=== PATIENT | male | born 1980 | race Caucasian/White ===

== ENCOUNTER 2017-04-25 15:36 | Inpatient (IN) | payer OTHER ==
[~2017-04-25] VITALS: Ht 167.6 cm; Wt 57.8 kg
--- NOTE | 2017-04-25 15:49 | ED PSYCHIATRIC COMPLAINT ---
See Addendum History of Present Illness General Chief Complaint: ETOH/Drug Related Complaint Stated Complaint: ON PEER FOR +SI AND ETOH Source: patient, EMS Exam Limitations: intoxication Vital Signs & Intake/Output Vital Signs & Intake/Output Vital Signs Date Time Temp Pulse Resp B/P B/P Pulse O2 O2 Flow FiO2 Mean Ox Delivery Rate 04/26 0051 98.6 82 18 151/75 97 Room Air 04/25 2202 98.2 94 16 151/84 96 Room Air 04/25 2202 98.2 94 18 151/84 04/25 1840 Room Air 04/25 1839 99.2 100 18 150/98 04/25 183 99.2 100 18 150/98 95 Room Air 04/25 1553 Room Air 04/25 1551 98.6 103 18 157/105 95 Room Air ED Intake and Output 04/26 0000 04/25 1200 Intake Total 240 Output Total Balance 240 Intake, Oral 240 Patient 138 lb Weight Weight Reported by Patient Measurement Method Allergies Coded Allergies: NO KNOWN ALLERGIES (04/25/17) Reconcile Medications No Known Home Medications Triage Nurses Notes Reviewed? yes Onset: Gradual Duration: worse persistent since (2-3 days) Timing: recent history Severity: moderate Associated Symptoms: anxiety HPI: Patient is a 36-year-old male with history of polysubstance abuse, alcohol dependence presenting to the emergency department via EMS on peer . Patient presently made comments that he wants to harm himself in front of his mother. His mother called EMS and the police. Patient reports that he said things out of anger and did not mean them. no current suicidal ideation and ideation. Denies hallucinations. Reports that he had 7 nips of hard alcohol today. He reports that he also vapes, denies any other drug use. Denies any chest pain palpitations or shortness of breath. No history of withdrawal seizures. Patient not requesting alcohol detox. (Cat Marrero) Past History Medical History Any Pertinent Medical History? 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 No (Cat Marrero) Review of Systems Review of Systems Constitutional: Reports: no symptoms. Comments Review of systems: See HPI, All other systems negative. Constitutional, no chills fever or weight loss HEENT: No visual changes no sore throat no congestion Cardiovascular: No chest pain ,palpitation Skin, no jaundice no rashes Respiratory: No dyspnea cough sputum or hemoptysis GI: No nausea no vomiting : No dysuria No hematuria Muscle skeletal: no back pain, no neck pain, Neurologic: No numbness no confusion, no headaches Psych: Positive stress and anxiety Heme/endocrine: No bruising no bleeding no polyuria or polydipsia Immunology: No splenectomy or history of AIDS (Cat Marrero) Physical Exam Physical Exam General Appearance: no apparent distress, alert, awake, intoxicated Neurological/Psychiatric: oriented x 3 Comments: Well-developed well-nourished person in no acute distress HEENT: Atraumatic, normocephalic Neck: Normal inspection Cardiovascular: Regular rate and rhythms no murmurs rubs or gallops, normal JVP Respiratory: No respiratory distress.breath sounds clear to auscultation bilaterally Extremity: No edema Neuro: Alert oriented x3 Skin: No appreciable rash on exposed skin, skin is warm and dry. Psych: Slightly anxious, hyperverbal. intoxicated. SAD PERSONS Done? patient not suicidal (Cat Marrero) Progress Differential Diagnosis: polysubstance abuse, alcohol dependence on alcohol withdrawal, major depressive disorder, generalized anxiety disorder Plan of Care: Orders Procedure Date/time Status Regular Diet 04/26 B Active Continuous Observation Monitor 04/26 0700 Active Continuous Observation Monitor 04/26 0300 Active Continuous Observation Monitor 04/25 2300 Active Continuous Observation Monitor 04/25 1900 Active ED CRISIS PSYCH CONSULT 04/25 1549 Active Continuous Observation Monitor 04/25 1548 Active CIWA 04/25 1548 Active URINE DRUG SCREEN FOR ER ONLY 04/25 1548 Complete ETHANOL 04/25 1548 Complete COMPREHENSIVE METABOLIC PANEL 04/25 1548 Complete CBC WITHOUT DIFFERENTIAL 04/25 1548 Complete Laboratory Tests 04/25/17 1602: Anion Gap 22 H, Estimated GFR > 60, BUN/Creatinine Ratio 17.1, Glucose 174 H, Calcium 9.5, Total Bilirubin 0.4, AST 24, ALT 32, Alkaline Phosphatase 83, Total Protein 7.9, Albumin 5.3 H, Globulin 2.6, Albumin/Globulin Ratio 2.0, CBC w Diff NO MAN DIFF REQ, RBC 5.40, MCV 94.9 H, MCH 32.3 H, MCHC 34.1, RDW 13.1, MPV 6.8 L, Gran % 79.6 H, Lymphocytes % 14.6 L, Monocytes % 5.0, Eosinophils % 0.5, Basophils % 0.3, Absolute Granulocytes 10.3 H, Absolute Lymphocytes 1.9, Absolute Monocytes 0.6, Absolute Eosinophils 0.1, Absolute Basophils 0, Serum Alcohol 224.0 04/25/17 1558: Urine Opiates Screen 1032.00, Methadone Screen < 40, Barbiturate Screen < 60, Ur Phencyclidine Scrn < 6.00, Amphetamines Screen < 100, U Benzodiazepines Scrn < 85, Urine Cocaine Screen < 50, Urine Cannabis Screen > 80.00 H Hand-Off Endorsed To: Noe Lawler MD Endorsed Time: 1999 Pending: consult Comments: Signed out to pending reevaluation. (Cat Marrero) Hand-Off Endorsed To: Ragini Joseph MD Endorsed Time: 699 Pending: consult (Noe Lawler MD) Departure Departure Disposition: STILL A PATIENT Condition: Stable Clinical Impression Primary Impression: Alcohol dependence Qualifiers: Substance use status: uncomplicated Qualified Code: F10.20 - Alcohol dependence, uncomplicated Secondary Impressions: Polysubstance abuse Referrals: Patient Has No Primary Care Dr Departure Forms: Customer Survey General Discharge Information Prescriptions: Current Visit Scripts No Known Home Medications (Cat Marrero)
[2017-04-25 16:14] LABS: ABSOLUTE BASOPHIL COUNT 0 /CUMM (0.0-0.2); ABSOLUTE EOSINOPHIL COUNT 0.1 /CUMM (0.0-0.7); ABSOLUTE GRANULOCYTE CT 10.3 /CUMM (1.4-6.5); ABSOLUTE LYMPH COUNT 1.9 /CUMM (1.2-3.4); ABSOLUTE MONOCYTE COUNT 0.6 /CUMM (0.10-0.60); BASOPHIL % 0.3 % (0.0-2.0); EOSINOPHIL % 0.5 % (0-5); HEMATOCRIT 51.2 % (42-52); MEAN CORPUSCULAR HGB 32.3 PG (27.0-31.0); MEAN CORPUSCULAR HGB CONC 34.1 G/DL (33.0-37.0); MEAN CORPUSCULAR VOLUME 94.9 FL (80.0-94.0); MEAN PLATELET VOLUME 6.8 FL (7.4-10.4); PLATELET COUNT 369 /CUMM (130-400); RBC DISTRIBUTION WIDTH 13.1 % (11.5-14.5); WHITE BLOOD CELL COUNT 12.9 /CUMM (4.8-10.8)
[2017-04-25 16:17] LABS: GRANULOCYTE % 79.6 % (42.2-75.2)
[2017-04-25 18:39] VITALS: BP 150/98
[2017-04-25 22:02] VITALS: BP 151/84
[2017-04-26] VITALS (9 sets, daily range): BP systolic 111–155; BP diastolic 74–96
--- NOTE | 2017-04-26 10:55 | ED PSYCH CRISIS CONSULTATION ---
Crisis Consult Basic Assessment Date of Consult: 04/26/17 Responsible Person/Accompanied By: self/biba/PEER Insurance Authorization: Insurance #1: Insurance name: MEGHAN FRIED Phone number: Policy number: [id number] Group number: [id number] Authorization number: ED Provider: Patient's ED Provider: Ragini Joseph MD Primary Care Physician: Patient's PCP: Romero Foreman DO PCP's Current Psychiatrist: none Chief Complaint: ETOH/Drug Related Complaint Patient's Quote: Wish I didn't get that drunk Present Illness: Pt is a 36 yo male biba to [place] ED yesterday afternoon on a [place] [employer] PEER for statement "he wants to ". Pt BAL: in ED 224 and Urine Tox screen positive for marijuana and opiates (pt reports opiates is for prescribed pain pills for shoulder and back pain). During consult pt denies SI/HI. Pt denies AH/ VH. Pt reports 0/10 depression and 0/10 anxiety. Pt denies MH tx other than vague statement that at age 18 he had "treatment" but doesn't want to discuss. Pt reports no hx of psychiatric medication. Pt reports occasional glass of wine and some nips but reports no concerns regarding his drinking habits. Pt reports seldom marijuana use (last use 1 month ago). 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 Pt reports having 3 children ages 11, 9 and 6 mos and resides with his gf who is the mother of the 6 month old. He reports wkend visitation with the other two children. Pt reports some work stress with long hrs but otherwise denies concerns or stressors. Pt reports good sleep and good appetite. Pt complains about shoulder and back pain and is prescribed flexiril and may require rotator cuff surgery in the future. Collateral provided by pt Susan [phone]. She reports pt has been making SI statements and texting and facebook posts past two days since gf broke off their relationship (mother came to ED and provided crisis with copies of facebook and text posts). She reports he appears to be drinking heavily past three days and not caring for himself. She reports pt had made two previous suicide attempts of tylenol o/d at age 18 and 7 yrs ago with hospitalizations at [facility] and [facility]. She reports pt is resistant to mental health tx and medications and is in denial of his mental health issues and problems with etoh. She reports pt is in denial can make reckless and impulsive decisions. She reports pt has been able to stay employed but has poor interpersonal skills and fights with others when drinking. She reports concern that pt needs inpatient treatment before he hurts himself or others. Case reviewed with Dr Mera with order for inpatient psychiatric treatment. Plan discussed with pt who has verbalized non-compliance with plan. If pt unwilling to sign in voluntarily he will be placed on a PEC. Patient's Address: [address] [place] [address] Other Phone Number: Who Do You Live With? Family (mother/father/sister) Family/Informants Interviewed: Collateral provided by pt mother Susan Allergies - Coded Allergies: NO KNOWN ALLERGIES (04/25/17) Current Medications - No Known Home Medications Laboratory Results: Laboratory Tests 04/25/17 1602: Anion Gap 22 H, Estimated GFR > 60, BUN/Creatinine Ratio 17.1, Glucose 174 H, Calcium 9.5, Total Bilirubin 0.4, AST 24, ALT 32, Alkaline Phosphatase 83, Total Protein 7.9, Albumin 5.3 H, Globulin 2.6, Albumin/Globulin Ratio 2.0, CBC w Diff NO MAN DIFF REQ, RBC 5.40, MCV 94.9 H, MCH 32.3 H, MCHC 34.1, RDW 13.1, MPV 6.8 L, Gran % 79.6 H, Lymphocytes % 14.6 L, Monocytes % 5.0, Eosinophils % 0.5, Basophils % 0.3, Absolute Granulocytes 10.3 H, Absolute Lymphocytes 1.9, Absolute Monocytes 0.6, Absolute Eosinophils 0.1, Absolute Basophils 0, Serum Alcohol 224.0 04/25/17 1558: Urine Opiates Screen 1032.00, Methadone Screen < 40, Barbiturate Screen < 60, Ur Phencyclidine Scrn < 6.00, Amphetamines Screen < 100, U Benzodiazepines Scrn < 85, Urine Cocaine Screen < 50, Urine Cannabis Screen > 80.00 H Past History Past Medical History Neurological: NONE EENT: NONE Cardiovascular: NONE Respiratory: NONE Gastrointestinal: NONE Hepatic: NONE Renal: NONE Musculoskeletal: NONE Psychiatric: alcohol dependence (IN PAST) Endocrine: NONE Blood Disorders: NONE Cancer(s): NONE 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 Psychiatric Treatment History Psych Treatment Psychiatric Treatment Yes Inpatient Treatment Yes Outpatient Treatment No Location of Treatment [facility] (age 18), [facility] (2010) Reason for Treatment depession/Suicide attempt Response to Treatment pt has been resistant to medications and outpatient tx Diagnosis by History: depression/bipolar? etoh abuse Substance Use/Abuse History Drug Use/Abuse Substances Used/Abused Yes Substance Used/Abused Alcohol Last Used yesterday How much used/taken bunch of nips How often family reports almost daily Substance Abuse Treatment Substance Abuse Treatment Past Substance Abuse TX No Inpatient Treatment No Outpatient Treatment No Comments: pt has almost daily etoh; current BAL:250; positive tox screen for marijuana Current Mental Status Mental Status Orientation: Person, Place, Situation Affect: Anxious, Labile Speech: Evasive, Loud Neuro-vegetative: Sleep Disturbance Appearance Appearance- Dress/Hygiene: hospital scrubs; poor hygiene; maladorous; not shaven Behaviors Thought Process: WNL Thought Content: WNL Memory: WNL Insight: Poor SI/HI Risk Assessment Past Suicidal Ideation/Attempts Yes Current Suicidal Ideation/Att Yes (pt denies) Past Homicidal Ideation/Att: No Current Homicidal Ideation/Attempts No Degree of Intent: pt denies but has been texting, verbalizing and facebook messaging SI Danger To: Self Gravely Disabled: Lack of Insight, Poor Impulse Control, Poor Judgment Risk Factors: history of suicide atmpts, SA/MH hospitalized, substance abuse, poor impulse control, lack of outcome concern, male Lethality Ratin PTSD Checklist PTSD Done? patient declined ED Management Sitter: Yes Restraints: Yes DSM5/PS Stressors/Medical Prob Diagnosis' (DSM 5, Stressors, Medical): Unspecified Depression Bipolar d/o ? Alcohol Use d/o Canabis Use d/o recent break up shoulder/knee/back pain Current GAF: 20 Comments: Collateral reports pt has been making suicidal statements and posting suicidal messages past few days since gf broke up with him. Family reports pt has 2 prior suicide attempts. Family reports almost daily etoh use but has been more intoxicated past few days. Pt denies SI; denies etoh problems; denies depression ; etc. Departure Disposition Psych Medical Clearance Date: 04/26/17 Medically Cleared at: 0800 Time Started: 0800 Time Ended: 0845 Psychiatrist Consulted: Quique Mera MD Date Disposition Established: 04/26/17 Time Disposition Established: 1030 Plan for Disposition - Modality: Inpatient Psychiatry Rationale for Disposition: Pt making Suicidal statements to family and friends past 2 days since gf ended relationship. Pt biba after making SI statement. Pt is intoxicated and in denial of making statements. Pt requires inpatient tx for mood stabilization and assess for medications. Referrals Romero Foreman DO (PCP/Family)
--- NOTE | 2017-04-26 13:27 | ED PSY CRISIS COLLATERAL NOTE ---
Collateral Note Collateral Note Family/Inform/Jose De Jesus Contacts: Crisis attempted to obtain insurance authorization through [employer] ( ). Due to patient's plan additional clinical is needed for initial authorization. Reference # is [id number].
--- NOTE | 2017-04-26 13:50 | IP CRISIS DIAG ASSESS PSYCH ---
Diagnostic Assessment Basic Assessment Insurance Authorization: Insurance #1: Insurance name: ME[employer]AN FRIED Phone number: Policy number: [id number] Group number: [id number] Authorization number: Primary Care Physician: Patient's PCP: Romero Foreman DO PCP's Patient's Quote: Wish I didn't get that drunk Present Illness: Per Chester Lees's crisis consult from 04/26/17: Pt is a 36 yo male biba to [place] ED yesterday afternoon on a [place] [employer] PEER for statement "he wants to ". Pt BAL: in ED 224 and Urine Tox screen positive for marijuana and opiates (pt reports opiates is for prescribed pain pills for shoulder and back pain). During consult pt denies SI/HI. Pt denies AH/ VH. Pt reports 0/10 depression and 0/10 anxiety. Pt denies MH tx other than vague statement that at age 18 he had "treatment" but doesn't want to discuss. Pt reports no hx of psychiatric medication. Pt reports occasional glass of wine and some nips but reports no concerns regarding his drinking habits. Pt reports seldom marijuana use (last use 1 month ago). 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 Pt reports having 3 children ages 11, 9 and 6 mos and resides with his gf who is the mother of the 6 month old. He reports wkend visitation with the other two children. Pt reports some work stress with long hrs but otherwise denies concerns or stressors. Pt reports good sleep and good appetite. Pt complains about shoulder and back pain and is prescribed flexiril and may require rotator cuff surgery in the future. Collateral provided by pt Susan [phone]. She reports pt has been making SI statements and texting and facebook posts past two days since gf broke off their relationship (mother came to ED and provided crisis with copies of facebook and text posts). She reports he appears to be drinking heavily past three days and not caring for himself. She reports pt had made two previous suicide attempts of tylenol o/d at age 18 and 7 yrs ago with hospitalizations at [facility] and [facility]. She reports pt is resistant to mental health tx and medications and is in denial of his mental health issues and problems with etoh. She reports pt is in denial can make reckless and impulsive decisions. She reports pt has been able to stay employed but has poor interpersonal skills and fights with others when drinking. She reports concern that pt needs inpatient treatment before he hurts himself or others. Case reviewed with Dr Mera with order for inpatient psychiatric treatment. Plan discussed with pt who has verbalized non-compliance with plan. If pt unwilling to sign in voluntarily he will be placed on a PEC. UPDATE: 04/26/17 @ 13:40 Crisis met with patient to inform him that he will be admitted to our psychiatric inpatient unit. Pt reports he wants to do whatever so he can get to work on Saturday because of "bills". Explained to pt that he can voluntarily sign in to our unit which would show that he's on board with his treatment. Pt reviewed expectations of CPS and signed the voluntary form as well as the patient guidelines. Patient's Address: [address] [place] [address] Other Phone Number: Who Do You Live With? Family (mother/father/sister) Feel Safe Where You Live? Yes Marital Status: single Do You Have Children? Yes Ages? 6 mons, 9, 11 Primary Language? Burkinan Language(s) Spoken At Home: Burkinan Family/Informants Interviewed: Collateral provided by pt mother Susan Allergies - Coded Allergies: NO KNOWN ALLERGIES (04/25/17) Current Medications - No Known Home Medications Consequences of Psych Med Use: no current meds Lab Results: Laboratory Tests 04/25/17 1602: Anion Gap 22 H, Estimated GFR > 60, BUN/Creatinine Ratio 17.1, Glucose 174 H, Calcium 9.5, Total Bilirubin 0.4, AST 24, ALT 32, Alkaline Phosphatase 83, Total Protein 7.9, Albumin 5.3 H, Globulin 2.6, Albumin/Globulin Ratio 2.0, CBC w Diff NO MAN DIFF REQ, RBC 5.40, MCV 94.9 H, MCH 32.3 H, MCHC 34.1, RDW 13.1, MPV 6.8 L, Gran % 79.6 H, Lymphocytes % 14.6 L, Monocytes % 5.0, Eosinophils % 0.5, Basophils % 0.3, Absolute Granulocytes 10.3 H, Absolute Lymphocytes 1.9, Absolute Monocytes 0.6, Absolute Eosinophils 0.1, Absolute Basophils 0, Serum Alcohol 224.0 04/25/17 1558: Urine Opiates Screen 1032.00, Methadone Screen < 40, Barbiturate Screen < 60, Ur Phencyclidine Scrn < 6.00, Amphetamines Screen < 100, U Benzodiazepines Scrn < 85, Urine Cocaine Screen < 50, Urine Cannabis Screen > 80.00 H Toxicology Screen Completed? Yes Results: positive Symptoms of Use: positive for cannabis which pt reports he last smoked approx 1 month ago positive for opiates- patient reports he is pain meds for his shoulder and back pain Past History Past Medical History Medical History: Depression, Psychiatric history Abuse/Trauma History Trauma History/Current Trauma: Denies Legal History Current Legal Status: none Have you ever been arrested? 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 Physical Limitations (Interventions): pt reports he may require rotaor cuff surgery in the future Psychiatric Treatment History Psych Treatment Psychiatric Treatment Yes Inpatient Treatment Yes Outpatient Treatment No Location of Treatment [facility] (age 18), [facility] (2010) Reason for Treatment depession/Suicide attempt Response to Treatment pt has been resistant to medications and outpatient tx Diagnosis by History: depression/bipolar? etoh abuse Risk Factors: history of suicide atmpts, SA/MH hospitalized, substance abuse, poor impulse control, lack of outcome concern, male Substance Use/Abuse History Drug Use/Abuse minimum 12mo Hx 1 Substances Used/Abused Yes Substance Used/Abused Alcohol Last Used yesterday How much used/taken bunch of nips How often family reports almost daily Drug Use/Abuse minimum 12mo Hx 2 Substances Used/Abused Yes Substance Used/Abused Marijuana Last Used 1 month ago How much used/taken unsure How often varies Route of use inhale Drug Use/Abuse minimum 12mo Hx 3 Substances Used/Abused Yes Substance Used/Abused Nicotine First Use unk Last Used 04/25/17 How much used/taken equivalent to 3-4 cigarettes/day- unfilterd cigars/vapes Route of use inhale Substance Abuse Treatment Substance Abuse Treatment Past Substance Abuse TX No Inpatient Treatment No Outpatient Treatment No Current Mental Status Mental Status Orientation: Person, Place, Situation Affect: WNL Speech: WNL Neuro-vegetative: Sleep Disturbance Appearance Appearance- Dress/Hygiene: hospital scrubs; poor hygiene; maladorous; not shaven Behaviors Thought Process: WNL Thought Content: WNL Memory: WNL Insight: Poor SI/HI Risk Assessment - Minimum 6mo History- Past Suicidal Ideation/Attempts Yes Current Suicidal Ideation/Att Yes (pt denies) Past Homicidal Ideation/Att: No Current Homicidal Ideation/Attempts No Degree of Intent: pt denies but has been texting, verbalizing and facebook messaging SI Danger To: Self Gravely Disabled: Lack of Insight, Poor Impulse Control, Poor Judgment Risk Factors: history of suicide atmpts, SA/MH hospitalized, substance abuse, poor impulse control, lack of outcome concern, male Lethality Ratin Needs/Init TX Plan/Goals: comphrensive psychiatric assessment medication evaluation comphensive psychosocial assessment individual therapy group therapy family meeting AUDIT-C Questionnaire: AUDIT-C Questionnaire: Response Value ETOH use in the past year 2-4 times/month 2 # drinks typical/day 1 or 2 0 6 or > drinks per occasion Never 0 Total 2 DSM5/PS Stressors/Medical Prob Diagnosis' (DSM 5, Stressors, Medical): F32.9 Unspecified Depressive Disorder R/O Bipolar Disorder F10.20 Alcohol Use Disorder, Severe F12.20 Cannabis Use Disorder, Mild recent break up shoulder/knee/back pain Current GAF: 20 Comments: Collateral reports pt has been making suicidal statements and posting suicidal messages past few days since gf broke up with him. Family reports pt has 2 prior suicide attempts. Family reports almost daily etoh use but has been more intoxicated past few days. Pt denies SI; denies etoh problems; denies depression; etc.
[2017-04-27] VITALS (9 sets, daily range): BP systolic 135–154; BP diastolic 75–96
--- NOTE | 2017-04-27 12:02 | CPS PROVIDER INIT ASMT PSYCH ---
Psychiatric Admission Seo Analyst's Note Reviewed: Yes Patient Seen and Examined: Yes Identifying Information: 36yoM Chief Complaint: "I was very very very stressed" Reaction to Hospitalization: no change History of Present Illness Onset of Illness: few months Circumstances Leading to Admission: worsening alcohol use Problem(s) Justifying Need for Admission: SI and alcohol use Other HPI: Pt reports that he feels that his only problems are "being overworked and really stresed." He notes that his stressors are working, managing children, and relationship with partner. He feels that these are only issues. Denies manic, psychotic, or TRS. Pt adamant that does not have bipolar disorder. In addition, he notes that he did not drink enough to have any withdrawal sx. Refusing ativan. "I do not want meds, I only want a multivitamin." Denies SI or HI. When reviewed history from crisis note, he stated, "I don't remember, I was drinking. " Denies that he would have stated that he wanted to hurt self. Past Psychiatric History Past Diagnosis(es)- if any: Bipolar disorder AUD ADHD Past Precipitating Factors- if any: unclear, pt did not want to discuss any past psych history, "the past is the past!!!" - Include inpatient and outpatient treatment Treatment History: Pt had a therapist at [facility] in [place]. Cannot recall name. Did take lithium but "made me a different person," and discontinued. History of Suicide Attempts or Gestures "a very long time ago, its in the past and I won't talk about it" Substance Abuse History: Tobacco: former cig smoker, now pipe and vap Alcohol: 1 glass daily until more recently, "I cant remember how much I was drinking" Illicts: past use of mj; denied more recent use despite +utox Allergies: Coded Allergies: NO KNOWN ALLERGIES (04/25/17) Home Med List: see H&P - Include any medical condition(s) that may - impact the patient's recovery/remission Past Medical History: Pt denied Past History Medical History Neurological: NONE EENT: NONE Cardiovascular: NONE Respiratory: NONE Gastrointestinal: NONE Hepatic: NONE Renal: NONE Musculoskeletal: NONE Psychiatric: alcohol dependence (IN PAST) Endocrine: NONE Blood Disorders: NONE Cancer(s): NONE 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 History of MRSA: No History of VRE: No History of CDIFF: No Isolation History: Standard Influenza Vaccine: 01/06/17 Surgical History Surgical History: none Psychiatric Family/Social Hx Family History Psychiatric Illness: denied Substance Use: denied Suicides: denied Social History Living Situation: with gf and child Significant Relationships (family/friends): gf though they recently broke up Education: HS 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 - #1 Recognizing dangerous situations. - #2 Coping Skills. - #3 Basic information about quitting. Status of Tobacco Cessation Counseling: #1, #2 AND #3 Completed Cessation Med Status Nicotine Patch Ordered Alcohol Screening - ETOH screen POS if BAL >=80 or Audit-C>= M4/F3 Audit-C Score from Diag Assess: 2 Blood Alcohol Level: Laboratory Tests 04/25 1602 Toxicology Serum Alcohol (<10 MG/DL) 224.0 Alcohol Use Screening Results: Pos per Audit C &/or BAL - If ETOH counseling indicated - the following topics are required. - #1 Express concern about the patient's - drinking at unhealthy levels, include informing - of national norms for moderate drinking: - men <= 14 drinks/week, max 4 drinks/occasion - women <= 7 drinks/week, max 3 drinks/occasion - #2 Providing feedback, including linking alcohol to - negative physical effects (liver injury, hypertension) - negative emotional effects (relationship problems and - depression) - negative occupational consequences (reduced work - performance) - #3 Advising the patient to abstain from alcohol or - to drink below national norms for moderate drinking - (as listed above). Status of ETOH Use Counseling: #1, #2 AND #3 Completed. Metabolic Screening - Screen if on a Neuroleptic Medication - Metabolic screening should include: - Blood Pressure, BMI, Glucose or Hgb A1c, & a - Lipid profile from within the past 365 days. Metabolic Screening () Not Applicable, patient not on a neuroleptic. OR () Patient on a neuroleptic(s) . Enter below results for Hemoglobin A1C, and lipid panel if obtained during the last 365 days. BMI: 22.200 Blood Pressure: 154/78 Laboratory Results From [facility] (If applicable): Laboratory Tests 04/25 04/25 1602 1558 Chemistry Sodium (137 - 145 mmol/L) 144 Potassium (3.5 - 5.1 mmol/L) 3.7 Chloride (98 - 107 mmol/L) 100 Carbon Dioxide (22 - 30 mmol/L) 22 Anion Gap (5 - 16) 22 H BUN (9 - 20 mg/dL) 12 Creatinine (0.7 - 1.2 mg/dL) 0.7 Estimated GFR (>60 ml/min) > 60 BUN/Creatinine Ratio (7 - 25 %) 17.1 Glucose (65 - 99 mg/dL) 174 H Hemoglobin A1c (4.2 - 5.8 %) 5.2 Calcium (8.4 - 10.2 mg/dL) 9.5 Total Bilirubin (0.2 - 1.3 mg/dL) 0.4 AST (17 - 59 U/L) 24 ALT (21 - 72 U/L) 32 Alkaline Phosphatase (< 127 U/L) 83 Total Protein (6.3 - 8.2 g/dL) 7.9 Albumin (3.5 - 5.0 g/dL) 5.3 H Globulin (1.9 - 4.2 gm/dL) 2.6 Albumin/Globulin Ratio (1.1 - 2.2 %) 2.0 Triglycerides (<150 mg/dL) 66 Cholesterol (< 200 MG/DL) 186 LDL Cholesterol, Calc (65 - 129 mg/dL) 107 HDL Cholesterol (40 - 60 mg/dL) 66 H Cholesterol/HDL Ratio (0.00 - 4.88 %) 3 TSH &T3 &Free T4 Intrp (0.27 - 4.20 uIU/mL) 1.370 Hematology CBC w Diff NO MAN DIFF REQ WBC (4.8 - 10.8 /CUMM) 12.9 H RBC (4.70 - 6.10 /CUMM) 5.40 Hgb (14.0 - 18.0 G/DL) 17.5 Hct (42 - 52 %) 51.2 MCV (80.0 - 94.0 FL) 94.9 H MCH (27.0 - 31.0 PG) 32.3 H MCHC (33.0 - 37.0 G/DL) 34.1 RDW (11.5 - 14.5 %) 13.1 Plt Count (130 - 400 /CUMM) 369 MPV (7.4 - 10.4 FL) 6.8 L Gran % (42.2 - 75.2 %) 79.6 H Lymphocytes % (20.5 - 51.1 %) 14.6 L Monocytes % (1.7 - 9.3 %) 5.0 Eosinophils % (0 - 5 %) 0.5 Basophils % (0.0 - 2.0 %) 0.3 Absolute Granulocytes (1.4 - 6.5 /CUMM) 10.3 H Absolute Lymphocytes (1.2 - 3.4 /CUMM) 1.9 Absolute Monocytes (0.10 - 0.60 /CUMM) 0.6 Absolute Eosinophils (0.0 - 0.7 /CUMM) 0.1 Absolute Basophils (0.0 - 0.2 /CUMM) 0 Toxicology Urine Opiates Screen (>2000 NG/ML) 1032.00 Methadone Screen (>300 NG/ML) < 40 Barbiturate Screen (>200 NG/ML) < 60 Ur Phencyclidine Scrn (>25 NG/ML) < 6.00 Amphetamines Screen (>1000 NG/ML) < 100 U Benzodiazepines Scrn (>200 NG/ML) < 85 Urine Cocaine Screen (>300 NG/ML) < 50 Urine Cannabis Screen (>50 NG/ML) > 80.00 H Serum Alcohol (<10 MG/DL) 224.0 Exam and Plan Mental Status Examination Ambulation Status: freely w/o difficulty Appearance: younger than stated age Attitude towards examiner: cooperative though very evasive and defensive especially around past psych history Psychomotor activity: slight agitation Behavior: cooperative Quality of speech: nl p/r, increase rate though not to the level of being pressured, increased volume Affect: irritable, labile, appropriate, congruent Mood: "I'm fine" Suicidal Ideation: denied Homicidal Ideation: denied Hallucinations: denied Paranoid/Delusional Material: denied Difficulties with thought organization: slightly disorganized Insight: very poor Judgment: very poor Orientation: a/o x4 Cognition: grossly intact Memory Function: grossly intact Estimate of intellectual functioning: average Assets/Strengths Patient Identified Assets/Strengths: able to communicate Impression/Plan Impression and Plan: Pt with hx of bipolar disorder presenting s/p breakup with SI with worsening mood lability and irritability made worse by alcohol use. Unfortunately, though pt notes he is "stressed" he is denying all mood sx and denying SI. Pt is also refusing to sign ROIs so that more collateral can be obtained. - Include all active medical diagnosis that require tx DSM 5 Diagnosis(es): Bipolar disorder, current mixed state Alcohol Use disorder hx of ADHD, per pt - Initial Tx Plan for Active Psych & Medical Conditions Treatment Plan: - Continue monitoring for alcohol wd and to offer ativan - Need ROIs for more collateral - Encourage building of some therapeutic alliance so that more care (and meds) can be offered. - Factors that would help patient function - in a less restrictive setting. Factors: alcohol use, no psych care
--- NOTE | 2017-04-27 15:25 | Cons- Medical ---
General Information and HPI Consulting Request Date of Consult: 04/27/17 Requested By: Quique Mera MD Reason for Consult: Medical H & P Source of Information: patient, old records History of Present Illness: 36-year-old male past medical history of alcohol abuse with depression and suicidal ideation who was admitted with acute depressive symptoms, suicidal ideation and for alcohol detox. He has a past medical history of having an appendicectomy and previous issues that have to do with alcohol and cannabis use. He denies nausea, vomiting, diarrhea, he denies shortness of breath or chest pain, he denies hematemesis or melena. Allergies/Medications Allergies: Coded Allergies: NO KNOWN ALLERGIES (04/25/17) Home Med List: No Known Home Medications Current Medications: Current Medications Sig/Marla Start time Last Medication Dose Route Stop Time Status Admin Acetaminophen 650 MG Q6P PRN 04/26 1430 AC PO Al Hydroxide/Mg 30 ML Q4-6 PRN PRN 04/26 1430 AC Hydroxide PO Benztropine Mesylate 1 MG Q6P PRN 04/26 1430 AC PO Benztropine Mesylate 1 MG Q6P PRN 04/26 1430 AC IM Cyclobenzaprine HCl 5 MG AT BEDTIME NEED.. 04/26 2110 AC PO Folic Acid 1 MG DAILY 04/26 1416 AC PO 04/28 1001 Gabapentin 300 MG Q6P PRN 04/26 1430 AC PO Haloperidol 5 MG Q6P PRN 04/26 1430 AC PO Haloperidol 5 MG Q6P PRN 04/26 1430 AC IM Ibuprofen 600 MG Q6P PRN 04/26 2213 AC 04/27 PO 1013 Lorazepam 0.5 MG ONCE 05/01 0000 AC PO 05/01 0001 Lorazepam 0.5 MG Q6H 04/30 0000 AC PO 04/30 1801 Lorazepam 0.5 MG ONCE ONE 04/29 1800 AC PO 04/29 1801 Lorazepam 1 MG Q6H 04/29 0000 AC PO 04/29 1201 Lorazepam 1.5 MG Q12H 04/28 0600 AC PO 04/28 1801 Lorazepam 1 MG Q12H / 0000 AC PO 04/28 1201 Lorazepam 1.5 MG Q6 04/27 0600 AC PO 04/27 1801 Lorazepam 2 MG Q6 04/26 1800 DC PO 04/27 0001 Lorazepam 2 MG Q6P PRN 04/26 1430 AC IM Lorazepam 2 MG Q2P PRN 04/26 1415 AC PO Lorazepam 1 MG Q2P PRN 04/26 1415 AC PO Magnesium Hydroxide 30 ML AT BEDTIME PRN 04/26 1430 AC PO Multivitamins 1 TAB DAILY 04/26 1416 AC 04/27 PO 0938 Nicotine 7 MG DAILY 04/27 1156 AC 04/27 TOP 1231 Thiamine HCl 100 MG DAILY 04/26 1416 AC PO 04/28 1001 Trazodone HCl 50 MG AT BEDTIME NEED.. 04/26 1430 AC PO Review of Systems Review of Systems Constitutional: Denies: no symptoms, chills, diaphoresis, fever. Cardiovascular: Denies: no symptoms, chest pain, edema, orthopena. Respiratory: Denies: no symptoms, cough, hemoptysis. GI: Denies: no symptoms, abdominal pain. Musculoskeletal: Reports: no symptoms, joint pain (chronic). 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 Home Services at Home: None Smoking Status: Current Everyday Smoker ETOH Use: heavy use Illicit Drug Use: marijuana Other Social History: Lives at home with his girlfriend. He has children, one of whom lives with him and the others he has visitation rights to. 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 And his family history is noncontributory to present illness. Employment History Employment: Employed Exam & Diagnostic Data Last 24 Hrs of Vital Signs/I&O Vital Signs Date Time Temp Pulse Resp B/P B/P Pulse O2 O2 Flow FiO2 Mean Ox Delivery Rate 04/27 1434 84 140/75 04/27 1207 79 154/78 04/27 1201 79 154/78 04/27 0814 96.3 93 137/96 04/27 0813 96.3 93 137/96 04/26 2335 85 140/96 04/26 2201 93 16 145/93 02/02 1959 98.8 76 153/88 04/26 1957 98.8 76 152/88 04/26 1953 99.2 73 146/78 04/26 1653 99.2 73 146/78 04/26 1624 73 146/78 Intake & Output 04/27 1600 04/27 0800 04/27 0000 Intake Total Output Total Balance Patient 57.833 kg Weight Physical Exam General Appearance: well developed/nourished, no apparent distress, alert, awake Head: atraumatic, normal appearance Eyes: Bilateral: normal appearance, PERRL, EOMI. Ears, Nose, Throat: normal pharynx, normal ENT inspection, hearing grossly normal Neck: supple, full range of motion Respiratory: normal breath sounds, chest non-tender, no respiratory distress Cardiovascular: regular rate/rhythm Gastrointestinal: normal bowel sounds, soft, non-tender, no organomegaly Extremities: normal inspection, normal capillary refill, normal range of motion Neurologic/Psych: no motor/sensory deficits, awake, alert, oriented x 3, normal gait Skin: intact, normal color, warm/dry Other Physical Findings: His gait is normal, he is awake and alert, cranial nerves III-12 are grossly intact, no motor or sensory deficit, no cerebellar signs and reflexes are 2+ and symmetric. Last 24 Hrs of Labs/Guillermo: Laboratory Tests 04/25 04/25 1602 1558 Chemistry Sodium (137 - 145 mmol/L) 144 Potassium (3.5 - 5.1 mmol/L) 3.7 Chloride (98 - 107 mmol/L) 100 Carbon Dioxide (22 - 30 mmol/L) 22 Anion Gap (5 - 16) 22 H BUN (9 - 20 mg/dL) 12 Creatinine (0.7 - 1.2 mg/dL) 0.7 Estimated GFR (>60 ml/min) > 60 BUN/Creatinine Ratio (7 - 25 %) 17.1 Glucose (65 - 99 mg/dL) 174 H Hemoglobin A1c (4.2 - 5.8 %) 5.2 Calcium (8.4 - 10.2 mg/dL) 9.5 Total Bilirubin (0.2 - 1.3 mg/dL) 0.4 AST (17 - 59 U/L) 24 ALT (21 - 72 U/L) 32 Alkaline Phosphatase (< 127 U/L) 83 Total Protein (6.3 - 8.2 g/dL) 7.9 Albumin (3.5 - 5.0 g/dL) 5.3 H Globulin (1.9 - 4.2 gm/dL) 2.6 Albumin/Globulin Ratio (1.1 - 2.2 %) 2.0 Triglycerides (<150 mg/dL) 66 Cholesterol (< 200 MG/DL) 186 LDL Cholesterol, Calc (65 - 129 mg/dL) 107 HDL Cholesterol (40 - 60 mg/dL) 66 H Cholesterol/HDL Ratio (0.00 - 4.88 %) 3 TSH &T3 &Free T4 Intrp (0.27 - 4.20 uIU/mL) 1.370 Hematology CBC w Diff NO MAN DIFF REQ WBC (4.8 - 10.8 /CUMM) 12.9 H RBC (4.70 - 6.10 /CUMM) 5.40 Hgb (14.0 - 18.0 G/DL) 17.5 Hct (42 - 52 %) 51.2 MCV (80.0 - 94.0 FL) 94.9 H MCH (27.0 - 31.0 PG) 32.3 H MCHC (33.0 - 37.0 G/DL) 34.1 RDW (11.5 - 14.5 %) 13.1 Plt Count (130 - 400 /CUMM) 369 MPV (7.4 - 10.4 FL) 6.8 L Gran % (42.2 - 75.2 %) 79.6 H Lymphocytes % (20.5 - 51.1 %) 14.6 L Monocytes % (1.7 - 9.3 %) 5.0 Eosinophils % (0 - 5 %) 0.5 Basophils % (0.0 - 2.0 %) 0.3 Absolute Granulocytes (1.4 - 6.5 /CUMM) 10.3 H Absolute Lymphocytes (1.2 - 3.4 /CUMM) 1.9 Absolute Monocytes (0.10 - 0.60 /CUMM) 0.6 Absolute Eosinophils (0.0 - 0.7 /CUMM) 0.1 Absolute Basophils (0.0 - 0.2 /CUMM) 0 Toxicology Urine Opiates Screen (>2000 NG/ML) 1032.00 Methadone Screen (>300 NG/ML) < 40 Barbiturate Screen (>200 NG/ML) < 60 Ur Phencyclidine Scrn (>25 NG/ML) < 6.00 Amphetamines Screen (>1000 NG/ML) < 100 U Benzodiazepines Scrn (>200 NG/ML) < 85 Urine Cocaine Screen (>300 NG/ML) < 50 Urine Cannabis Screen (>50 NG/ML) > 80.00 H Serum Alcohol (<10 MG/DL) 224.0 Assessment/Plan Assessment/Plan 36-year-old male no significant past medical history other than alcohol dependence and cannabis use is here with acute alcohol detox with depressive and suicidal complaints. I think he was dehydrated when he first came to the ER which is reflected in the anion gap of 22 and the elevated hemoglobin and white count. I'll repeat all labs for tomorrow now that he appears euvolemic on exam. I spoken to him about tobacco cessation and psych is managing his depressive symptoms and his alcohol dependence. He needs outpatient primary care follow-up on discharge. Problem List: 1. Alcohol dependence 2. Polysubstance abuse Copies To: Romeor Foreman DO Consult Acknowledgment - Thank you for your consult request.
--- NOTE | 2017-04-27 16:32 | SOCIAL WORKER SOCIAL HX PSYCH ---
Social History Basic Assessment Insurance Authorization: Insurance #1: Insurance name: MEGHAN FRIED Phone number: Policy number: [id number] Group number: [id number] Authorization number: Curr Source of Income/Entitlements: employment Primary Care Physician: Patient's PCP: Romero Foreman DO PCP's Present Problem: Per Chester Lees's crisis consult from 04/26/17: Pt is a 36 yo male biba to [place] ED yesterday afternoon on a [place] [employer] PEER for statement "he wants to ". Pt BAL: in ED 224 and Urine Tox screen positive for marijuana and opiates (pt reports opiates is for prescribed pain pills for shoulder and back pain). During consult pt denies SI/HI. Pt denies AH/ VH. Pt reports 0/10 depression and 0/10 anxiety. Pt denies MH tx other than vague statement that at age 18 he had "treatment" but doesn't want to discuss. Pt reports no hx of psychiatric medication. Pt reports occasional glass of wine and some nips but reports no concerns regarding his drinking habits. Pt reports seldom marijuana use (last use 1 month ago). 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 Pt reports having 3 children ages 11, 9 and 6 mos and resides with his gf who is the mother of the 6 month old. He reports wkend visitation with the other two children. Pt reports some work stress with long hrs but otherwise denies concerns or stressors. Pt reports good sleep and good appetite. Pt complains about shoulder and back pain and is prescribed flexiril and may require rotator cuff surgery in the future. Collateral provided by pt Susan [phone]. She reports pt has been making SI statements and texting and facebook posts past two days since gf broke off their relationship (mother came to ED and provided crisis with copies of facebook and text posts). She reports he appears to be drinking heavily past three days and not caring for himself. She reports pt had made two previous suicide attempts of tylenol o/d at age 18 and 7 yrs ago with hospitalizations at [facility] and [facility]. She reports pt is resistant to mental health tx and medications and is in denial of his mental health issues and problems with etoh. She reports pt is in denial can make reckless and impulsive decisions. She reports pt has been able to stay employed but has poor interpersonal skills and fights with others when drinking. She reports concern that pt needs inpatient treatment before he hurts himself or others. Case reviewed with Dr Mera with order for inpatient psychiatric treatment. Plan discussed with pt who has verbalized non-compliance with plan. If pt unwilling to sign in voluntarily he will be placed on a PEC. UPDATE: 04/26/17 @ 13:40 Crisis met with patient to inform him that he will be admitted to our psychiatric inpatient unit. Pt reports he wants to do whatever so he can get to work on Saturday because of "bills". Explained to pt that he can voluntarily sign in to our unit which would show that he's on board with his treatment. Pt reviewed expectations of CPS and signed the voluntary form as well as the patient guidelines. UPDATE: 04/27/17 @16:00 Met with patient in [facility] to complete Social History. Patient presented as alert, oriented x3, anxious, with congruent mood and affect. Patient states he is "stressed" and itemized triggers as being work, his relationship with his significant other (who he feels does not contribute to the relationship equally) , finances and his car needing repairs. Patient states his stress is currently still elevated, but that he feels better as he has been able to open up to people while inpatient and talk about his stress. Patient denies current SI, HI , auditory hallucinations and visual hallucinations. Patient reports he will make efforts to reconnect with a therapist he had used previously for follow up post-discharge. Primary Language? Sami Language(s) Spoken At Home: Sami Living Situation Rents or Owns Home? rents Other Living Arrangement: Lives with significant other who owns the home Feel Safe Where You Are Living Yes Feel Safe in Relationships? Yes Comments: N/A Allergies - Coded Allergies: NO KNOWN ALLERGIES (04/25/17) Current Medications - No Known Home Medications Consequences of Psych Med Use: Patient on no known medications when admitted. Comments: None Past History Past Medical History Neurological: NONE EENT: NONE Cardiovascular: NONE Respiratory: NONE Gastrointestinal: NONE Hepatic: NONE Renal: NONE Musculoskeletal: NONE Psychiatric: alcohol dependence (IN PAST) Endocrine: NONE Blood Disorders: NONE Cancer(s): NONE INVENTORY CONTROL ANALYST/Reproductive: NONE Past Surgical History Surgical History: non-contributory /Family History Place/Country of Origin: [place], [place] Childhood Family Constellation: Mother, father, Older brother and younger sister Primary Childhood Caretakers: father, mother Family Life During Childhood: "Good" Parents were supportive. DCF Involvement? No Mother's Age (Current/): 67 Relationship w/Mother: "Good, Close" Father's Age (Current/): 70 Relationship w/Father: "Good, close" Any Sibling(s)? Yes Sibling's Gender(s)/Age(s): male Sibling 1:, female Sibling 2: Relationship w/Sibling(s): "Good" Relationship w/Friends: Patient reports having limited friends. Patient states his main friend is his significant other. Family Psych/Sub Abuse/Add Hx: None reported Other Comments: N/A Abuse/Trauma History Trauma History/Current Trauma: Denies Abuse/Trauma Treatment: N/A Legal History Legal Guardian/Address/Phone: N/A Current Legal Status: none Pending Court Dates: None Have you ever been arrested No Hx of Juvenile Legal Charges? No Hx of Adult Legal Charges? 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 Weaknesses: Patient has limited coping skills to deal with stress. Physical Limitations (Interventions): Patient reports he may require rotaor cuff surgery in the future and mentioned knee pain. Last Physical: 04/15/17 History of Seizures? No History of Blackouts? No ADL Limitations: None [place]/Social/Peer Relations Patient reports having limited friends. Patient states his main friend is his significant other. Meaningful Activities: Playstation and driving sports car (2009 [employer] SS). Patient states "the only time I am not stressed is when I am driving my car." Childhood Episcopalian: Scientologist Current Episcopalian Affiliation: Scientologist Is Spirituality Important to You? "Yes" Patient's Ethnicity: Sami (Djiboutian), Serbian, Samoan Cultural/Ethnic Issues: None Are There Developmental Issues? No Milestones Achieved: fine motor, gross motor Psychiatric Treatment History Psych Treatment Inpatient Treatment Yes Outpatient Treatment No Location of Treatment [facility] (age 18), [facility] (2010) Reason for Treatment depession/Suicide attempt Dates of Treatment [facility] (age 18); [facility] 2010 Response to Treatment Pt has been resistant to medications and outpatient tx Precipitating Factors: Stressors are work, finances, limited support from s/o. Current Glaze Wiper: N/A Treatment of Prior Episodes: Patient reports seeing an individual therapist he would like to see again post discharge if available. Diagnosis: depression/bipolar? etoh abuse Psychodynamic Issues: Finances, limited social support, work Risk Factors: history of suicide atmpts, SA/MH hospitalized, substance abuse, poor impulse control, lack of outcome concern, male Substance Use/Abuse History Drug Use/Abuse 1 Substance Used/Abused Nicotine First Use unk Last Used 04/25/17 How much used/taken equivalent to 3-4 cigarettes/day- unfilterd cigars/vapes How often varies Route of use inhale Drug Use/Abuse 2 Substance Used/Abused Alcohol First Use Unclear Last Used Day he presented to ED How much used/taken bunch of nips How often family reports daily For how long Unclear Route of use Oral Drug Use/Abuse 3 Substance Used/Abused Marijuana First Use Unclear Last Used 1 month ago How much used/taken varies How often unsure For how long unsure Route of use Inhale Have Had Periods of Sobriety? No Explain: Patient is precontemplative regarding substance use/dependence. Relapse History? Yes Explain: Patient is precontemplative regarding substance use/dependence. Have You Ever Attended AA? No Do You Attend AA Currently? No Do You Have a Sponsor? No Other Community Resources Used: None noted Symptoms of Use: positive for cannabis which pt reports he last smoked approx 1 month ago positive for opiates- patient reports he is on pain meds for his shoulder and back pain Substance Abuse Treatment Substance Abuse Treatment Inpatient Treatment No Outpatient Treatment No Location of Treatment N/A Reason for Treatment N/A Dates of Treatment N/A Response to Treatment N/A Comments: None Sexual History Sexually Active Yes # of partners 1 Sexual Orientation Heterosexual Use of Protection Yes Sometimes Sexual Concerns: None Education History Highest Level of Education: high school/GED Highest Grade Completed: 12th grade Vocational Year Completed: truck 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 of Jobs in Last 5 Years: 3 Attendance: Normal Performance: Good Comments: None History Have You Been in The ? No If Yes, Explain: N/A Type of Discharge: N/A Date of Discharge: N/A Current Mental Status Mental Status Orientation: Person, Place, Situation Affect: Anxious Speech: Hyper-verbal Neuro-vegetative: Sleep Disturbance Appearance Appearance- Dress/Hygiene: Patient dressed in casual clothing, well groomed and hygienic Behaviors Thought Process: WNL Thought Content: WNL Memory: WNL Insight: Poor SI/HI Risk Assessment Past Suicidal Ideation/Attempts Yes Current Suicidal Ideation/Att Yes (pt denies) Past Homicidal Ideation/Att: No Current Homicidal Ideation/Attempts No Degree of Intent: pt denies but has been texting, verbalizing and facebook messaging SI Danger To: Self Gravely Disabled: Lack of Insight, Poor Impulse Control, Poor Judgment Risk Factors: High Anxiety/Distress, SA/MH Hospitalization(s), Hx of suicide attempt(s), Male, Substance Abuse Lethality Ratin - Conclusion and Recommendations for treatment - and discharge planning Summary: Collateral reports pt has been making suicidal statements and posting suicidal messages past few days since gf broke up with him. Family reports pt has 2 prior suicide attempts. Family reports almost daily etoh use but has been more intoxicated past few days. Pt denies SI; denies etoh problems; denies depression. Patient admitted to for psychiatric evaluation, medication review, family meeting, group therapy and to learn positive coping skills to help manage stress. Patient to posasibly be referred to IOP/individual therapy post-discharge.
[2017-04-28] VITALS (8 sets, daily range): BP systolic 122–136; BP diastolic 74–96
[2017-04-28 07:51] LABS: ABSOLUTE BASOPHIL COUNT 0.1 /CUMM (0.0-0.2); ABSOLUTE EOSINOPHIL COUNT 0.3 /CUMM (0.0-0.7); ABSOLUTE GRANULOCYTE CT 4.3 /CUMM (1.4-6.5); ABSOLUTE LYMPH COUNT 2.5 /CUMM (1.2-3.4); ABSOLUTE MONOCYTE COUNT 0.8 /CUMM (0.10-0.60); BASOPHIL % 0.6 % (0.0-2.0); GRANULOCYTE % 54.5 % (42.2-75.2); MEAN CORPUSCULAR HGB 32.5 PG (27.0-31.0); MEAN CORPUSCULAR HGB CONC 34.2 G/DL (33.0-37.0); MEAN CORPUSCULAR VOLUME 95.1 FL (80.0-94.0); MEAN PLATELET VOLUME 7.6 FL (7.4-10.4); PLATELET COUNT 229 /CUMM (130-400); RBC DISTRIBUTION WIDTH 12.6 % (11.5-14.5); RED BLOOD CELL CT 4.65 /CUMM (4.70-6.10); WHITE BLOOD CELL COUNT 7.9 /CUMM (4.8-10.8)
[2017-04-28 08:37] LABS: HEMATOCRIT 44.3 % (42-52)
--- NOTE | 2017-04-28 12:00 | CP SOUTH PROGRESS NOTE PSYCH ---
Psych (Inpt) Progress Note Progress Note Include the following elements, when applicable: Involvement in the active treatment of the patient with behavioral observations of the patient and the patient's response to the treatment. Review of the ongoing treatment process in the context of the treatment plan. Indication of how multi-disciplinary staff members are carrying out the treatment plan. Plans for future interventions and recommendations for revision of the treatment plan. Liaison with other physicians/providers. Progress Note: Pt notes that he took the gabapentin and "its was a mistake." He is adamant that he does not need meds. He denies SI or HI. Spoke at length about wanting to be present for all communications with his mother after he signed the ABDIRIZAK. Explained that this may not be always possible. He notes he slept well. Current Medications Sig/Marla Start time Last Medication Dose Route Stop Time Status Admin Acetaminophen 650 MG Q6P PRN 04/26 1430 AC PO Al Hydroxide/Mg 30 ML Q4-6 PRN PRN 04/26 1430 AC Hydroxide PO Benztropine Mesylate 1 MG Q6P PRN 04/26 1430 AC PO Benztropine Mesylate 1 MG Q6P PRN 04/26 1430 AC IM Cyclobenzaprine HCl 5 MG AT BEDTIME NEED.. 04/26 2110 AC 04/27 PO 2253 Folic Acid 1 MG DAILY 04/26 1416 DC PO 04/28 1001 Gabapentin 300 MG Q6P PRN 04/26 1430 AC 04/27 PO 1915 Haloperidol 5 MG Q6P PRN 04/26 1430 AC PO Haloperidol 5 MG Q6P PRN 04/26 1430 AC IM Ibuprofen 600 MG .STK-MED ONE 04/27 1628 DC PO 04/27 1629 Ibuprofen 600 MG Q6P PRN 04/26 2213 AC 04/28 PO 0930 Lorazepam 0.5 MG ONCE 05/01 0000 AC PO 05/01 0001 Lorazepam 0.5 MG Q6H 04/30 0000 AC PO 04/30 1801 Lorazepam 0.5 MG ONCE ONE 04/29 1800 AC PO 04/29 1801 Lorazepam 1 MG Q6H 04/29 0000 AC PO 04/29 1201 Lorazepam 1.5 MG Q12H 04/28 0600 AC PO 04/28 1801 Lorazepam 1 MG Q12H 04/28 0000 AC PO 04/28 1201 Lorazepam 1.5 MG Q6 04/27 0600 DC PO 04/27 1801 Lorazepam 2 MG Q6P PRN 04/26 1430 AC IM Lorazepam 2 MG Q2P PRN 04/26 1415 AC PO Lorazepam 1 MG Q2P PRN 04/26 1415 AC PO Magnesium Hydroxide 30 ML AT BEDTIME PRN 04/26 1430 AC PO Multivitamins 1 TAB DAILY 04/26 1416 AC 04/28 PO 0930 Nicotine 7 MG DAILY 04/27 1156 AC 04/28 TOP 0931 Thiamine HCl 100 MG DAILY 04/26 1416 DC PO 04/28 1001 Trazodone HCl 50 MG AT BEDTIME NEED.. 04/26 1430 AC PO Laboratory Tests 04/28 0620 Chemistry Sodium (137 - 145 mmol/L) 142 Potassium (3.5 - 5.1 mmol/L) 3.8 Chloride (98 - 107 mmol/L) 102 Carbon Dioxide (22 - 30 mmol/L) 29 Anion Gap (5 - 16) 11 BUN (9 - 20 mg/dL) 17 Creatinine (0.7 - 1.2 mg/dL) 0.8 Estimated GFR (>60 ml/min) > 60 BUN/Creatinine Ratio (7 - 25 %) 21.3 Hematology CBC w Diff NO MAN DIFF REQ WBC (4.8 - 10.8 /CUMM) 7.9 RBC (4.70 - 6.10 /CUMM) 4.65 L Hgb (14.0 - 18.0 G/DL) 15.1 Hct (42 - 52 %) 44.3 MCV (80.0 - 94.0 FL) 95.1 H MCH (27.0 - 31.0 PG) 32.5 H MCHC (33.0 - 37.0 G/DL) 34.2 RDW (11.5 - 14.5 %) 12.6 Plt Count (130 - 400 /CUMM) 229 MPV (7.4 - 10.4 FL) 7.6 Gran % (42.2 - 75.2 %) 54.5 Lymphocytes % (20.5 - 51.1 %) 31.1 Monocytes % (1.7 - 9.3 %) 9.8 H Eosinophils % (0 - 5 %) 4.0 Basophils % (0.0 - 2.0 %) 0.6 Absolute Granulocytes (1.4 - 6.5 /CUMM) 4.3 Absolute Lymphocytes (1.2 - 3.4 /CUMM) 2.5 Absolute Monocytes (0.10 - 0.60 /CUMM) 0.8 H Absolute Eosinophils (0.0 - 0.7 /CUMM) 0.3 Absolute Basophils (0.0 - 0.2 /CUMM) 0.1 04/25 04/25 1602 1558 Chemistry Sodium (137 - 145 mmol/L) 144 Potassium (3.5 - 5.1 mmol/L) 3.7 Chloride (98 - 107 mmol/L) 100 Carbon Dioxide (22 - 30 mmol/L) 22 Anion Gap (5 - 16) 22 H BUN (9 - 20 mg/dL) 12 Creatinine (0.7 - 1.2 mg/dL) 0.7 Estimated GFR (>60 ml/min) > 60 BUN/Creatinine Ratio (7 - 25 %) 17.1 Glucose (65 - 99 mg/dL) 174 H Hemoglobin A1c (4.2 - 5.8 %) 5.2 Calcium (8.4 - 10.2 mg/dL) 9.5 Total Bilirubin (0.2 - 1.3 mg/dL) 0.4 AST (17 - 59 U/L) 24 ALT (21 - 72 U/L) 32 Alkaline Phosphatase (< 127 U/L) 83 Total Protein (6.3 - 8.2 g/dL) 7.9 Albumin (3.5 - 5.0 g/dL) 5.3 H Globulin (1.9 - 4.2 gm/dL) 2.6 Albumin/Globulin Ratio (1.1 - 2.2 %) 2.0 Triglycerides (<150 mg/dL) 66 Cholesterol (< 200 MG/DL) 186 LDL Cholesterol, Calc (65 - 129 mg/dL) 107 HDL Cholesterol (40 - 60 mg/dL) 66 H Cholesterol/HDL Ratio (0.00 - 4.88 %) 3 TSH &T3 &Free T4 Intrp (0.27 - 4.20 uIU/mL) 1.370 Hematology CBC w Diff NO MAN DIFF REQ WBC (4.8 - 10.8 /CUMM) 12.9 H RBC (4.70 - 6.10 /CUMM) 5.40 Hgb (14.0 - 18.0 G/DL) 17.5 Hct (42 - 52 %) 51.2 MCV (80.0 - 94.0 FL) 94.9 H MCH (27.0 - 31.0 PG) 32.3 H MCHC (33.0 - 37.0 G/DL) 34.1 RDW (11.5 - 14.5 %) 13.1 Plt Count (130 - 400 /CUMM) 369 MPV (7.4 - 10.4 FL) 6.8 L Gran % (42.2 - 75.2 %) 79.6 H Lymphocytes % (20.5 - 51.1 %) 14.6 L Monocytes % (1.7 - 9.3 %) 5.0 Eosinophils % (0 - 5 %) 0.5 Basophils % (0.0 - 2.0 %) 0.3 Absolute Granulocytes (1.4 - 6.5 /CUMM) 10.3 H Absolute Lymphocytes (1.2 - 3.4 /CUMM) 1.9 Absolute Monocytes (0.10 - 0.60 /CUMM) 0.6 Absolute Eosinophils (0.0 - 0.7 /CUMM) 0.1 Absolute Basophils (0.0 - 0.2 /CUMM) 0 Toxicology Urine Opiates Screen (>2000 NG/ML) 1032.00 Methadone Screen (>300 NG/ML) < 40 Barbiturate Screen (>200 NG/ML) < 60 Ur Phencyclidine Scrn (>25 NG/ML) < 6.00 Amphetamines Screen (>1000 NG/ML) < 100 U Benzodiazepines Scrn (>200 NG/ML) < 85 Urine Cocaine Screen (>300 NG/ML) < 50 Urine Cannabis Screen (>50 NG/ML) > 80.00 H Serum Alcohol (<10 MG/DL) 224.0 Vital Signs Date Time Temp Pulse Resp B/P B/P Pulse O2 O2 Flow FiO2 Mean Ox Delivery Rate 04/28 0834 97.4 90 136/96 /04 0810 97.4 90 136/96 /03 1909 97.8 83 135/77 02/03 1907 98.8 83 135/77 / 1629 72 152/75 02/03 1627 72 152/75 02/03 1434 84 140/75 02/03 1207 79 154/78 02/03 1201 79 154/78 MSE General appearance: good hygiene and grooming; Attitude: cooperative; Eye contact: appropriate; Movement: + psychomotor agitation; Speech: nl fluency, increased rate/rhythm, increased volume, almost pressured, nl prosody; Mood: "I'm fine!" Affect: irritable, flat, appropriate, constricted, non-labile, congruent; Thought process: linear and goal-directed; Thought content: denied SI or HI, no paranoid ideation; Perception: denied hallucinations- auditory, visual, does not appear to be responding to internal stimuli; I/J: limited A/P: Pt with hx of bipolar disorder presenting s/p breakup with SI with worsening mood lability and irritability made worse by alcohol use. Unfortunately, though pt notes he is "stressed" he is denying all mood sx and denying SI. Pt is also refusing to sign ROIs so that more collateral can be obtained. - Continue monitoring for alcohol wd and to offer ativan - Need ROIs for more collateral- pt agreed to sign one for his mother this morning - Pt filed 3d paper - Encourage building of some therapeutic alliance so that more care (and meds) can be offered.
[2017-04-29] VITALS (7 sets, daily range): BP systolic 137–152; BP diastolic 76–99
--- NOTE | 2017-04-29 15:03 | SOCIAL WORKER PROG NOTE PSYCH ---
See Addendum Social Work Progress Note Progress Note Fabian described admission to the hospital as a stressful situation where he was in a drunken state and made a big mistake. It sounds like he has been staying with his Mother in [place] and not currently staying with his girlfriend in [place]. They have a 6 month old baby together. It was difficult to follow the circumstances of what was going on in this relationship, as he seemed a bit tangential and disorganized in talking to me. He told me that he doesn't typically drink as much as he had. He said he may have a glass of wine a night. I questioned other drug use? He said he has smoked marijuana on occasion, but only a few times. 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 When asked about his mood? He describes it as "stressed." He doesn't know how to answer if he is anxious, because he doesn't know what that feels like. 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 He has been doing that for 2 years and feels it is his livelyhood and what he is passionate about. He reports that he is drug tested there all the time. He denies opiate use, but his tox screen states it is positive. He said he was taking a muscle relaxer that was prescribed to him on 04/15. He reports sleep and appetite are good. Denies SI/ HI. He mentioned having been connected to [employer] in the past and having a past dx of "manic depressive disorder." He denies having low's or real high's in his mood. He does appear a little pressured in speech. He asked for a referral back to [facility] and signed a release. He also wanted me to initiate the meeting with his Mother. Called Mrs. Parr and set up a meeting for 1pm tomorrow.
--- NOTE | 2017-04-29 16:59 | CP SOUTH PROGRESS NOTE PSYCH ---
Psych (Inpt) Progress Note Progress Note Include the following elements, when applicable: Involvement in the active treatment of the patient with behavioral observations of the patient and the patient's response to the treatment. Review of the ongoing treatment process in the context of the treatment plan. Indication of how multi-disciplinary staff members are carrying out the treatment plan. Plans for future interventions and recommendations for revision of the treatment plan. Liaison with other physicians/providers. Progress Note: Dr. Johnson's notes reviewed. Case and treatment plan discussed in team meeting. Staff reports that the patient minimizes everything. Refusing Ativan. CIWA scores are low. We will change CIWA to every 4 hours while awake. Reportedly submitted a 3-day paper but did not. Patient seen with medical student at 3:09 PM. The patient is an ambulatory, thin white male, sitting in a chair in no acute distress. He is noted to hold his right knee. Reports he was drinking on and he guesses that he said in his drunken state that he wanted to . Reports that his girlfriend, Candelaria, broke up with him on Saturday via text while the patient was driving. They had been together for 1.5 years and living together for 1 year. Reports she argued with him over how he handled an online [employer] video game, referring to another player as "childish." After the breakup, the patient went to stay with his parents. States he should not have been drinking. Has been stressed by work and is the main bread-winner. Candelaria works a couple of hours a week. The couple has a 6-month-old boy, Hakan. Patient reports his moods are good most of the time. Affect is calm and blunted to euthymic and superficial. He states he does not get angry. Rates sad mood 0 /10 and anxiety 1-2/10. Denies feeling hopeless, helpless or worthless. Feels guilty a little bit because he does not listen to Candelaria, who has told him that she wants his moods to be leveled off. Denies active and passive suicidal ideation. Denies homicidal ideation. Denies auditory and visual hallucinations. Denies paranoid ideation and magical bennett. Thinking is not very crisp but it is not very disorganized either. Reports he was diagnosed with ADD between the ages of 4 and 6. He was hospitalized at [facility] for a Tylenol overdose plus alcohol consumption and reports that he was told at the time that he had bipolar disorder. He seems to disputes the bipolar diagnosis. Patient is oriented 3 except he gives the date ais April 28 or 2017. Describes sleep as "actually, it's damn good" at 6-8 hours a night. Appetite is good. Energy is wonderful. Denies feeling any alcohol withdrawal. Anticipates family meeting with mother tomorrow. Denies having submitted a 3-day paper. He is not against psychiatric medication, but he isn't sure what to target. Reports having work-related right knee and left shoulder injuries and is on a muscle relaxer. Reports he drinks about 1 glass of wine once a day after work. Reports he used marijuana, a little bit, a couple of weeks ago. I strongly advised patient to stop drinking, given that he is on a muscle relaxer. 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 IMPRESSION: Slow progress. Continue present treatment plan. We will hold off on standing psychiatric medication at this time, unless and until there are clear target symptoms. We will monitor for mood symptoms, including those of bipolar disorder. We will monitor for safety. Await outcome of family meeting with mother. Anticipate likely discharge later this week to home and family with referral for outpatient treatment.
[2017-04-30] VITALS (8 sets, daily range): BP systolic 121–141; BP diastolic 69–86
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
[2017-05-01 08:48] VITALS: BP 157/84
[2017-05-01 08:49] VITALS: BP 157/84
[2017-05-01 12:09] VITALS: BP 147/82
--- NOTE | 2017-05-01 15:20 | SOCIAL WORKER PROG NOTE PSYCH ---
See Addendum Social Work Progress Note Progress Note Spoke with Brigitte at [facility] 8 days authorized with review on Wednesday 05/03. [id number]
[2017-05-01 15:57] VITALS: BP 132/84
--- NOTE | 2017-05-01 16:27 | SOCIAL WORKER PROG NOTE PSYCH ---
Social Work Progress Note Progress Note Fabian has been sitting working on a puzzle today. When approached to meet with me he got up, but made some passive aggressive comments about meeting with me again. I told him we will meet daily. I asked him why he revoked his release to his Mom? He stated he only signed the release for the family meeting and now it's over. He asked me why I had asked him yesterday if he was angry with his Mom? I told him that he looked upset with her at the meeting, due to some of the things she was saying. He then went on a rant about how he is 36 and doesn 't need his Mother involved. I made a statement about how he was going to be living with her when he leaves here. He got upset with the word "living", so I corrected myself and said "staying with." He appeared very argumentative and just wasn't cooperative, so I told him I was not here to engage in an argument with him so this meeting was over. He said "thank you."
--- NOTE | 2017-05-01 16:49 | CP SOUTH PROGRESS NOTE PSYCH ---
Psych (Inpt) Progress Note Progress Note Include the following elements, when applicable: Involvement in the active treatment of the patient with behavioral observations of the patient and the patient's response to the treatment. Review of the ongoing treatment process in the context of the treatment plan. Indication of how multi-disciplinary staff members are carrying out the treatment plan. Plans for future interventions and recommendations for revision of the treatment plan. Liaison with other physicians/providers. Progress Note: Case and treatment plan discussed in team meeting. Staff reports that the patient has been loud and intrusive. CIWA scores have been stable, so we will discontinue CIWA. Patient apparently submitted a 3-day paper which will this Saturday. Patient seen at 11:32 AM. He was working on a [employer] puzzle with peers prior to meeting with me in office. He stood during the interview because he wanted to keep his "leg elevated." He remains superficial and minimizes. Reports that he refused his first dose of Depakote yesterday because "you kind of forced it on me." States he will not comply with the blood draw here but will at [facility]. Affect is irritable. 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 I have changed Depakote effective 05/02/17 to 750 mg nightly. He maintains that his mother lies. Speech is somewhat rambling. Mood is "fine, just as any other time." Rate sad mood and anxiety both 0/10. Denies feeling hopeless, helpless, worthless or guilty. Denies active and passive suicidal ideation. Denies homicidal ideation. Denies auditory and visual hallucinations and paranoid ideation. Reports sleep and appetite are fine. Energy: "I love my energy." States his energy is high but not too high. Reports he had an ache or pain in his abdominal right lower quadrant for a few minutes this morning but it cleared. IMPRESSION: Slow progress. Continue present treatment plan. Monitor response to Depakote. Anticipate likely discharge on Saturday to mother's home. Patient will be referred to [facility].
[2017-05-01 19:46] VITALS: BP 124/76
--- NOTE | 2017-05-02 08:36 | SOCIAL WORKER PROG NOTE PSYCH ---
Social Work Progress Note Progress Note Fabian has an intake at [facility] on 05/10 8:30am with Yun Joy. Fabian has been working on a puzzle in the kitchen most of the day. Informed him of his intake appt. for next Saturday. He was informed that Dr. Mera won't be here tomorrow and he will be seeing Dr. Gallagher. He is asking for a return to work letter. I told him I will speak with about his request. I asked what his plans would be for tomorrow? He said he would be planning to call his Mother or Father to pick him up in the afternoon. States his mood has been the same since admission and nothing has really changed. 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 He made comments about how he is the only one who can figure out the puzzle because it's too complicated for others. Asked why he wasn't in group? He stated it was repetative.
[2017-05-02 08:39] VITALS: BP 136/88
[2017-05-02 11:45] VITALS: BP 151/91
--- NOTE | 2017-05-02 15:25 | CP SOUTH PROGRESS NOTE PSYCH ---
Psych (Inpt) Progress Note Progress Note Include the following elements, when applicable: Involvement in the active treatment of the patient with behavioral observations of the patient and the patient's response to the treatment. Review of the ongoing treatment process in the context of the treatment plan. Indication of how multi-disciplinary staff members are carrying out the treatment plan. Plans for future interventions and recommendations for revision of the treatment plan. Liaison with other physicians/providers. Progress Note: Case and treatment plan discussed in team meeting. Patient has a 3-day paper in place. He revoked release of information for us to speak with his mother. Reported that his goal was to finish a puzzle. Showing no insight. Patient seen at 10:10 AM. He seems less pressured and less irritable. He states he can't tell any difference on the Depakote. Patient stood during the interview. He gave as a reason, "I'm always sitting." Reports he is "trying to do that very hard puzzle." He feels that the Depakote may have energized him last night. It took him a couple of hours to fall asleep. He also notes that he is not on his usual sleep schedule here, commenting "it's very awkward from me." Reports mood is "the same as it has been every day, good, usually always good." Rates sad mood and anxiety both 0/10. Denies feeling hopeless, helpless , worthless or guilty. Denies active and passive suicidal ideation. Denies homicidal ideation. Denies auditory and visual hallucinations and paranoid ideation. Reports that once he fell asleep, he must have tossed and turned, because his left shoulder hurts. Left shoulder injury is chronic and work- related. Reports appetite is fine, same as always. Energy is "same as always. " I informed him that we anticipate likely discharge tomorrow on expiration of 3-day paper. Patient is aware that I will be out tomorrow and that Dr. Axel Melendez will be covering. Bloodwork has been ordered for tomorrow for Depakote level, liver function tests , amylase and lipase. Of note, patient refused his first dose of Depakote, so the blood level will not be at steady-state. IMPRESSION: Slow progress. Continue present treatment plan. Showing limited insight. Patient has a 3-day paper in place that is expiring tomorrow.
[2017-05-02 16:04] VITALS: BP 122/76
[2017-05-02 19:32] VITALS: BP 130/81
[2017-05-03 08:00] VITALS: BP 134/83
--- NOTE | 2017-05-03 08:50 | SOCIAL WORKER PROG NOTE PSYCH ---
Social Work Progress Note Progress Note Called Viktoria at [facility] and left a message inquiring about the timeframe of Fabian being able to see a prescriber there. Spoke with Fabian, who had been invited into the office to sit down, but he preferred to stand stating his leg was bothering him. He has been sitting in the kitchen for hours working on a puzzle, so I felt this was more about his resistance in meeting with me. I asked if he had any questions in relation to his d/c? Or any concerns? He said no. I asked if he was still taking the Depakote and how he was doing on it ? He stated I feel the same as I did when I came in "the same calm person I have always been." He is looking for the doctor to write a return to work letter for next Saturday. I told him I would speak with Dr. Gallagher about it. I also shared that I was hoping that he would be able to see a prescriber at [facility] within a couple of weeks or I may have to schedule him with a "bridge " appt. at [facility]. I was informed by Geneva Castro at [facility] that they are booking out 3-4 weeks for med appts. I ended up scheduling an appt. with [facility] on 05/22 at 3:[address] Diego. This appt. is [address] and [address] Gallagher stated he will provide a refill in 2 weeks and he should call CPS.
--- NOTE | 2017-05-03 10:10 | Patient Discharge Instructions ---
Psych Discharge Inst General Discharge Information Reason for Admission: Thoughts of suicide and alcohol use disorder Psy Discharge Primary Diag+ Unspecified Bipolar Psy Discharge Secondary Diag+ Alcohol Use Disorder Summary Tests/Major Procedures Lab ALT 36 U/L 05/03/17 0631 AST 18 U/L 05/03/17 0631 Albumin 4.0 g/dL 05/03/17 0631 Alkaline Phosphatase 52 U/L 05/03/17 0631 Total Protein 6.3 g/dL 05/03/17 0631 Hct 44.3 % 04/28/17 06 Hgb 15.1 G/DL 04/28/17 0620 Plt Count 229 /CUMM 04/28/17 06 RBC 4.65 /CUMM L 04/28/17619 WBC 7.9 /CUMM 04/28/17619 Valproic Acid 61.0 ug/mL 05/03/1731 Studies Pending at DC: None Patient Instructions Contact Information Your Psychiatrist on [facility] was Quique Mera MD * If you are experiencing an emergency related to this hospitalization, please call [phone] to contact the treating psychiatrist or the psychiatrist-on- call. * To Request a copy of your medical records, please contact the Medical Records Department at [phone]. * To request results of studies pending at the time of discharge, please call [phone]. * Continue your Medications until directed to stop by your Healthcare provider. General Medication Information Please continue to take your new medications and your continued home medications , unless otherwise indicated on your discharge medication list, or unless directed by your MD or SURVEILLANCE SENSOR OFFICER to stop them. Special Instructions Diet Regular Activity Normal - Tobacco Use Treatment Offered Post DC Medications Offered: Script Given-See Med List Post DC Tobacco Treatment Plan: Nadir Tobacco Tx Pgm - EtOH/Drug Use D/O Treatment Offered Post DC Medications Offered: Med Not Indicated for D/O Post DC EtOH/SubAbuse TX Plan: Other SubAbuse/Dual Pgm Metabolic Screening X Not Applicable, patient not on a neuroleptic. OR () Patient on a neuroleptic(s) . Enter below results for Hemoglobin A1C, and lipid panel if obtained during the last 365 days. BMI: 22.200 Blood Pressure: 134/83 Laboratory Results From [facility] (If applicable): Advance Directives Does the Patient have Medical Advance Directives No/Refused further info Does Pt have Psychiatric Advance Directives? No/Refused further info Does Patient have a Designated Surrogate Decision Maker: No Information About Psychiatric Advance Directives Provided? Yes Discharge Plan Post Hospital Treatment Plan: Ricarda
[2017-05-03] MEDS ORDERED: TRAZODONE HCL50 M1 PO (10:15)
[2017-05-03] MEDS ORDERED: IBUPROFEN600 M1 PO (10:15)
[2017-05-03] MEDS ORDERED: GABAPENTIN300 M2 PO (10:15)
[2017-05-03] MEDS ORDERED: NICOTINE PATCH1 EAC1 TOP (10:15)
[2017-05-03] MEDS ORDERED: DIVALPROEX SOD250 M2 PO (10:15)
[2017-05-03] MEDS ORDERED: CYCLOBENZAPRINE5 M2 PO (10:15)
--- NOTE | 2017-05-03 15:11 | SOCIAL WORKER PROG NOTE PSYCH ---
Social Work Progress Note Faxed Referral(s) 1 Referred To: CARE Transition of Care Documents sent: [facility] Instructions, Health Summary, W10 Faxed to: [phone] Fax #: [phone] Faxed by: Soheila Estevez Date faxed: 05/03/17 Time Faxed: [phone] Faxed Referral(s) 2 Referred To: OPS Transition of Care Documents sent: [facility] Instructions, Health Summary, W10 Faxed to: [phone] Fax #: [phone] Faxed by: Soheila Estevez Date faxed: 05/03/17 Time Faxed: [phone]
--- NOTE | 2017-05-03 15:42 | CP SOUTH PROGRESS NOTE PSYCH ---
Psych (Inpt) Progress Note Progress Note Vitals Blood Pressure 134/83 05/03/17 0800 Pulse Rate 89 05/03/17 0800 Temperature 96.9 05/03/17 1205 Case and treatment plan discussed in team meeting. less pressured and less irritable, denied feeling depressed or hopeless (rates sad mood and anxiety both 0/10). Denies active and passive suicidal ideation. Denies homicidal ideation. Denies auditory and visual hallucinations and paranoid ideation. Discharge Plan: D/C Home Aftercare and discharge plan as per discharge instructions. Slow progress. Continue present treatment plan. Showing limited insight. Patient has a 3-day paper in place that is expiring tomorrow.
== END 2017-05-03 12:35 | DRG 885 ==
LOC: ERH 15:36 → CP SOUTH 04-26 14:12 → ERHI 04-26 14:12 → ENTRNSPT 04-26 16:01 → CP SOUTH 04-26 16:13 → CMPTRNSPT 04-26 16:15 → ENRESERV 04-26 23:59 → CP SOUTH 04-29 23:37
PROVIDERS: Internal Medicine; Physician Assistant
DX: F31.9 Bipolar disorder, unspecified (principal); Z72.89 Other problems related to lifestyle
CPT/HCPCS: 36415; 80307; 82436; G0480; J3490